=== PATIENT | female | born 2000 | race Caucasian/White ===

== ENCOUNTER 2023-12-07 13:00 | Inpatient (IN) | payer OTHER ==
[2023-12-07] MEDS: ELECTROLYTE-148 SOLN 1,000 ML IV SCH ×2 (15:10→18:42)
[2023-12-07 15:29] VITALS: BMI 31.2
[2023-12-07 15:43] LABS: BASO % 0.2 % (0-2.0); EOS % 0.4 % (0-4.5); HEMOGLOBIN 11.8 GM/dL (10.7-15.3); MCH 30.4 pg (25.7-33.7); MCHC 33.9 g/dl (32.0-36.0); MEAN CELL VOLUME 89.8 fl (80-96); MEAN PLT VOLUME 10.6 fl (7.5-11.1); MONO % 6.4 % (3.8-10.2); PLATELET COUNT 130 10^3/uL (134-434); RDW 13.3 % (11.6-15.6); WHITE BLOOD COUNT 8.7 K/mm3 (4.0-10.0)
[2023-12-07 15:51] LABS: INR 0.88 (0.83-1.09); PROTHROMBIN TIME (PATIENT) 10.2 SEC (9.7-13.0)
[2023-12-07 15:53] LABS: ACTIVATED PTT 29.5 SECONDS (25.2-36.5)
[2023-12-07 16:09] LABS: POTASSIUM 3.8 mmol/L (3.5-5.1)
[2023-12-07 16:10] LABS: CALCIUM 8.6 mg/dL (8.5-10.1)
[2023-12-07 16:11] LABS: BLOOD UREA NITROGEN 6.8 mg/dL (7-18)
[2023-12-07 16:14] LABS: CREATININE 0.4 mg/dL (0.55-1.3)
[2023-12-07] MEDS ORDERED: FENTANYL/BUPIVACAINE/NS/PF - PCEA - 50 ML DISP.SYRIN EP ONE (17:52)
[2023-12-07] MEDS ORDERED: NALOXONE HCL 0.4 MG/ML VIAL IVPUSH PRN (18:00)
[2023-12-07] MEDS ORDERED: BUPIVACAINE HCL/PF 0.25% (2.5MG/ML) 10 ML VIAL ONE (18:11)
[2023-12-07] MEDS: FENTANYL/BUPIVACAINE/NS/PF - PCEA - 50 ML DISP.SYRIN EP SCH (19:00)
[2023-12-07] MEDS ORDERED: OXYTOCIN 30 UNITS in 0.9% NS 30 UNIT/500 ML INFUS.BAG IVPB ONE (19:04)
[2023-12-07] MEDS: OXYTOCIN 30 UNITS in 0.9% NS 30 UNIT/500 ML INFUS.BAG IVPB SCH (19:08)
[2023-12-07] MEDS ORDERED: OXYTOCIN 20 UNITS in 0.9% NS 20 UNIT/1,000 ML INFUS.BAG IV ONE (20:50)
[2023-12-07] MEDS: OXYTOCIN 20 UNITS in 0.9% NS 20 UNIT/1,000 ML INFUS.BAG IV SCH (23:00)
[2023-12-07 23:21] LABS: CORD BASE EXCESS -6.9 mmol/L (0-2); CORD HCO3 20.5 mmHg (20-29); CORD PCO2 47.9 mmHg (30-78); CORD pH 7.249 (7.14-7.44)
[2023-12-07 23:22] LABS: CORD HCO3 20.9 mmHg (20-29); CORD PCO2 58.1 mmHg (30-78); CORD pH 7.174 (7.14-7.44)
[2023-12-07] MEDS ORDERED: BISACODYL 10 MG SUPP.RECT RC PRN (23:45)
[2023-12-07] MEDS ORDERED: ACETAMINOPHEN 325 MG TABLET (FP) PO PRN (23:45)
[2023-12-07] MEDS ORDERED: oxyCODONE HCL 5 MG TABLET PO PRN (23:45)
[2023-12-07] MEDS ORDERED: WITCH HAZEL 50% (TUCKS) 40 PAD/JAR PAD TP PRN (23:45)
[2023-12-07] MEDS ORDERED: BENZOCAINE 28 GM HEMORRHOIDAL OINTMENT TP PRN (23:45)
[2023-12-07] MEDS ORDERED: BENZOCAINE 20% 57 GM BOTTLE TP PRN (23:45)
[2023-12-07] MEDS ORDERED: METHYLERGONOVINE MALEATE 0.2 MG/1 ML AMP IM PRN (23:45)
[2023-12-08] MEDS ORDERED: IBUPROFEN 600 MG TABLET (FP) PO ONE (00:46)
[2023-12-08] MEDS: IBUPROFEN 600 MG TABLET (FP) PO PRN (00:48)
[2023-12-08 07:55] LABS: BASO % 0.2 % (0-2.0); EOS % 0.1 % (0-4.5); HEMATOCRIT 33.2 % (32.4-45.2); HEMOGLOBIN 11.2 GM/dL (10.7-15.3); LYMPH % 14.8 % (8-40); MCH 30.3 pg (25.7-33.7); MCHC 33.7 g/dl (32.0-36.0); MEAN CELL VOLUME 89.7 fl (80-96); MEAN PLT VOLUME 10.6 fl (7.5-11.1); MONO % 6.7 % (3.8-10.2); NEUT % 78.2 % (42.8-82.8); PLATELET COUNT 112 10^3/uL (134-434); RDW 13.3 % (11.6-15.6); WHITE BLOOD COUNT 13.6 K/mm3 (4.0-10.0)
[2023-12-08] MEDS ORDERED: SENNOSIDES/DOCUSATE COMBO (SENNA PLUS) TABLET (UD) PO PRN (22:00)
[2023-12-09 12:18] VITALS: BP 111/76; PULSE 95; RESP 17; TEMP 97.4
[2023-12-09] MEDS: MEASLES,MUMPS&RUBELLA VACC/PF 0.5 ML VIAL SQ ONE (12:48)
== END 2023-12-09 13:20 | disposition home or self-care (01) | DRG 560 ==
LOC: JDEL 13:00 → JLDR 14:55 → J3W 12-08 01:03
PROVIDERS: ADMIT Family Medicine; ATTEND Family Medicine
PROC: 10E0XZZ Delivery of Products of Conception, External Approach (ICD-10-PCS; principal; 2023-12-07)
PROC: 0KQM0ZZ Repair Perineum Muscle, Open Approach (ICD-10-PCS; 2023-12-07)
PROC: 0W8NXZZ Division of Female Perineum, External Approach (ICD-10-PCS; 2023-12-07)
DX: O70.1 Second degree perineal laceration during delivery (principal); Z3A.38 38 weeks gestation of pregnancy; Z37.0 Single live birth
CPT/HCPCS: 36415; 36600; 59025; 59409; 80048; 82803; 85025; 85610; 85730; 86780; 86850; 86900; 86901